=== PATIENT | female | born 1990 | race Native Hawaiian/Other Pacific Islander ===

== ENCOUNTER → 2016-08-17 | Outpatient (CLI) | payer MEDICAID | LOC: BRMIMAGING 12:34 | PROVIDERS: ATTEND Physician Assistant | DX: M43.12 Spondylolisthesis, cervical region (principal); M53.82 Other specified dorsopathies, cervical region | CPT/HCPCS: 70360-PO ==

== ENCOUNTER → 2017-07-06 | Outpatient (CLI) | payer MEDICAID | LOC: BRMIMAGING 11:44 | PROVIDERS: ATTEND Physician Assistant | DX: Z03.89 Encounter for observation for other suspected diseases and conditions ruled out (principal) | CPT/HCPCS: 73610-PO ==